=== PATIENT | female | born 1935 | race Caucasian/White ===

== ENCOUNTER 2017-06-28 01:47 | Inpatient (IN) | payer MEDICARE, OTHER ==
[~2017-06-28] VITALS: Ht 177.8 cm; Wt 81.1 kg
[2017-06-28 03:00] LABS: BASOPHILS # (AUTO) 0.02 x10^3/uL (0-0.1); BASOPHILS % (AUTO) 0 % (0-1); EOSINOPHILS # (AUTO) 0.15 x10^3/uL (0-0.4); EOSINOPHILS % (AUTO) 3 % (1-7); LYMPHOCYTES # (AUTO) 1.62 x10^3/uL (1-3.4); LYMPHOCYTES % (AUTO) 29 % (22-44); MD NO; MEAN CORPUSCULAR HEMOGLOBIN 30.5 pg (27.0-34.8); MEAN CORPUSCULAR HGB CONC 32.7 g/dL (32.4-35.8); MEAN CORPUSCULAR VOLUME 93.2 fL (80-100); MEAN PLATELET VOLUME 7.7 fL (7.4-10.4); MONOCYTES % (AUTO) 9 % (2-9); NEUTROPHILS # (AUTO) 3.25 x10^3/uL (1.8-6.8); NEUTROPHILS % (AUTO) 59 % (42-75); PLATELET COUNT 205 x10^3/uL (130-400); RED CELL DISTRIBUTION WIDTH 13.4 % (9.6-15.2)
[2017-06-28] MEDS ORDERED: SODIUM CHLORIDE 0.9% 1,000ML IVBOLUS ONE (03:00)
[2017-06-28] MEDS ORDERED: ONDANSETRON 2MG/ML, 2ML IVPush ONE (03:00)
[2017-06-28] MEDS ORDERED: MORPHINE SULFATE 4 MG/ML, 1ML IVPush PRN ×2 (03:00→05:00)
[2017-06-28 03:14] LABS: ALANINE AMINOTRANSFERASE 20 U/L (12-78); ALBUMIN 3.4 g/dL (3.4-5.0); ANION GAP 6 mmol/L (5-15); CALCIUM 9.1 mg/dL (8.5-10.1); CHLORIDE 102 mmol/L (98-107); CREATININE 0.83 mg/dL (0.55-1.02)
[2017-06-28] MEDS ORDERED: ONDANSETRON 2MG/ML, 2ML ONE (03:16)
[2017-06-28] MEDS ORDERED: MORPHINE SULFATE 4 MG/ML, 1ML ONE (03:16)
[2017-06-28 03:18] LABS: ALKALINE PHOSPHATASE 58 U/L (45-117); TOTAL PROTEIN 6.9 g/dL (6.4-8.2); TROPONIN I 0.055 ng/mL (0.000-0.045)
[2017-06-28] MEDS ORDERED: ASPIRIN 325 MG TABLET ONE (03:28)
[2017-06-28] MEDS ORDERED: ASPIRIN 81 MG TABLET CHEW PO ONE (03:30)
[2017-06-28 04:03] LABS: MICROSCOPIC NOT IND
[2017-06-28 04:06] LABS: CULTURE INDICATED? NO
[2017-06-28] MEDS ORDERED: ONDANSETRON 2MG/ML, 2ML IVPush PRN ×2 (05:00→08:30)
[2017-06-28] MEDS ORDERED: PLEASE ENTER ALLERGIES MC SCH (05:00)
[2017-06-28] MEDS ORDERED: OMNIPAQUE 350 MG/ML, 100ML BOTTLE ONE (05:23)
[2017-06-28 05:45] VITALS: BP 169/79
[2017-06-28 08:00] VITALS: BP 159/74
[2017-06-28] MEDS ORDERED: hydrALAzine 20 MG/ML, 1ML IVPush PRN (08:30)
[2017-06-28] MEDS ORDERED: TEMAZEPAM 15 MG CAPSULE PO PRN (08:30)
[2017-06-28] MEDS ORDERED: ACETAMINOPHEN 325 MG TABLET PO PRN (08:30)
[2017-06-28] MEDS ORDERED: HYDROcodone/APAP 5/325 TABLET PO PRN (08:30)
[2017-06-28] MEDS ORDERED: morphine SULFATE 10 MG/ML, 1ML IVPush PRN (08:30)
[2017-06-28] MEDS: ENOXAPARIN 40 MG/0.4 ML SQ SCH (08:30)
[2017-06-28] MEDS: PANTOPROZOLE 40MG TABLET PO SCH ×2 (08:30→20:52)
[2017-06-28] MEDS: VALSARTAN 80 MG TABLET PO SCH (09:00)
[2017-06-28 09:13] LABS: FREE T4 (FREE THYROXINE) 1.17 ng/dL (0.76-1.46); THYROID STIMULATING HORMONE 2.13 mIU/L (0.358-3.740)
[2017-06-28] MEDS: ASPIRIN 81 MG TABLET EC PO SCH (09:43)
[2017-06-28] MEDS: POLYETHYLENE GLYCOL 17 GM PACKET PO SCH (09:43)
[2017-06-28] MEDS: SODIUM CHLORIDE 0.9% 1,000 ML IV SCH ×2 (09:44→19:45)
[2017-06-28] MEDS: SUCRALFATE 1 GM/10 ML UDC PO SCH ×4 (09:50→20:52)
[2017-06-28 14:00] VITALS: BP 122/68
[2017-06-28] MEDS ORDERED: METOPROLOL TARTRATE 25 MG TABLET PO SCH (18:00)
[2017-06-28 20:40] VITALS: BP 154/83
[2017-06-29 02:23] VITALS: BP 111/63
[2017-06-29] MEDS: SODIUM CHLORIDE 0.9% 1,000 ML IV SCH (05:45)
[2017-06-29 05:59] LABS: TROPONIN I 0.063 ng/mL (0.000-0.045)
[2017-06-29 08:15] VITALS: BP 148/79
[2017-06-29] MEDS: ENOXAPARIN 40 MG/0.4 ML SQ SCH (08:25)
[2017-06-29] MEDS: VALSARTAN 80 MG TABLET PO SCH (08:31)
[2017-06-29] MEDS: SUCRALFATE 1 GM/10 ML UDC PO SCH ×2 (08:31→10:20)
[2017-06-29] MEDS: PANTOPROZOLE 40MG TABLET PO SCH (08:31)
[2017-06-29] MEDS: ASPIRIN 81 MG TABLET EC PO SCH (08:31)
[2017-06-29] MEDS: POLYETHYLENE GLYCOL 17 GM PACKET PO SCH (08:31)
[2017-06-29] MEDS ORDERED: ASPI-621 PO (12:11)
[2017-06-29] MEDS ORDERED: PANT40TA5 PO (12:11)
[2017-06-29] MEDS ORDERED: POLY17PO5 PO (12:11)
[2017-06-29] MEDS ORDERED: VALS80TA3 PO (12:11)
[2017-06-29] MEDS ORDERED: SUCR1ORA5 PO (12:11)
[2017-06-29 12:38] VITALS: BP 165/87
== END 2017-06-29 14:40 | disposition home or self-care (01) | DRG 392 ==
LOC: ED 04:08 → EDIP 04:59 → 5SO 05:33
PROVIDERS: ADMIT Internal Medicine; ATTEND Internal Medicine
DX: K21.0 Gastro-esophageal reflux disease with esophagitis (principal); I48.2 Chronic atrial fibrillation; I45.10 Unspecified right bundle-branch block; I10 Essential (primary) hypertension; R79.89 Other specified abnormal findings of blood chemistry; K59.00 Constipation, unspecified; K44.9 Diaphragmatic hernia without obstruction or gangrene; Z79.82 Long term (current) use of aspirin; Z90.49 Acquired absence of other specified parts of digestive tract
CPT/HCPCS: 36415; 71045; 74177; 80053; 81003; 83690; 84439; 84443; 84484; 85025; 93005; 93306; 96361; 96374; J2405; Q9967; J7030

== ENCOUNTER 2017-07-16 01:37 | Emergency (ER) | payer MEDICARE ==
[~2017-07-16] VITALS: Ht 167.6 cm; Wt 74.3 kg
[~2017-07-16 01:37] MED LIST: ASPI-621 PO; PANT40TA5 PO; POLY17PO5 PO; SUCR1ORA5 PO; VALS80TA3 PO
[2017-07-16] MEDS ORDERED: MAALOX/HYOSCYAMINE/LIDOCAINE 45 ML BTL ONE (02:09)
[2017-07-16] MEDS: MAALOX/HYOSCYAMINE/LIDOCAINE 45 ML BTL PO ONE ×2 (02:11→02:30)
[2017-07-16 02:22] LABS: BASOPHILS # (AUTO) 0.02 x10^3/uL (0-0.1); BASOPHILS % (AUTO) 0 % (0-1); EOSINOPHILS # (AUTO) 0.13 x10^3/uL (0-0.4); EOSINOPHILS % (AUTO) 2 % (1-7); LYMPHOCYTES % (AUTO) 32 % (22-44); MD NO; MEAN CORPUSCULAR HEMOGLOBIN 30.7 pg (27.0-34.8); MEAN CORPUSCULAR HGB CONC 33.8 g/dL (32.4-35.8); MEAN PLATELET VOLUME 7.7 fL (7.4-10.4); MONOCYTES % (AUTO) 8 % (2-9); NEUTROPHILS # (AUTO) 3.44 x10^3/uL (1.8-6.8); NEUTROPHILS % (AUTO) 57 % (42-75); PLATELET COUNT 223 x10^3/uL (130-400); RED BLOOD COUNT 4.57 x10^6/uL (3.82-5.3); RED CELL DISTRIBUTION WIDTH 12.7 % (9.6-15.2)
[2017-07-16 02:31] LABS: ALANINE AMINOTRANSFERASE 21 U/L (12-78); ALBUMIN 3.6 g/dL (3.4-5.0); ANION GAP 8 mmol/L (5-15); CALCIUM 8.5 mg/dL (8.5-10.1); CHLORIDE 100 mmol/L (98-107); CREATININE 0.76 mg/dL (0.55-1.02)
[2017-07-16 02:36] LABS: ALKALINE PHOSPHATASE 62 U/L (45-117); TOTAL PROTEIN 7.2 g/dL (6.4-8.2); TROPONIN I 0.057 ng/mL (0.000-0.045)
[2017-07-16] MEDS ORDERED: HYDR25TA6 PO (02:42)
[2017-07-16 04:20] VITALS: BP 178/89
== END 2017-07-16 04:33 | disposition home or self-care (01) ==
LOC: ED 01:44
DX: I10 Essential (primary) hypertension (principal); M47.892 Other spondylosis, cervical region; R10.13 Epigastric pain; R78.89 Finding of other specified substances, not normally found in blood; I48.91 Unspecified atrial fibrillation; K21.9 Gastro-esophageal reflux disease without esophagitis; Z90.49 Acquired absence of other specified parts of digestive tract
CPT/HCPCS: 36415; 71045; 72125; 80053; 83690; 84484; 85025; 93005; 99285

== ENCOUNTER 2019-01-31 03:32 | Inpatient (IN) | payer MEDICARE ==
[~2019-01-31] VITALS: Ht 167.6 cm; Wt 75.0 kg
[2019-02-01 06:58] VITALS: BP 182/84
== END 2019-02-01 14:24 | disposition home or self-care (01) | DRG 305 ==
LOC: ED 05:40 → EDIP 05:41 → 5SO 06:25 → DCLOUNGE 02-01 14:01
PROVIDERS: ADMIT Family Medicine; ATTEND Family Medicine
DX: I10 Essential (primary) hypertension (principal); R10.13 Epigastric pain; R07.9 Chest pain, unspecified; I25.10 Atherosclerotic heart disease of native coronary artery without angina pectoris; K21.0 Gastro-esophageal reflux disease with esophagitis; I48.2 Chronic atrial fibrillation; K21.9 Gastro-esophageal reflux disease without esophagitis; N28.1 Cyst of kidney, acquired; K59.00 Constipation, unspecified; E87.6 Hypokalemia; I25.2 Old myocardial infarction; Z90.49 Acquired absence of other specified parts of digestive tract; Z79.82 Long term (current) use of aspirin
CPT/HCPCS: 36415; 71045; 80048; 80053; 83690; 83735; 83880; 84443; 84484; 85025; 85610; 93005; 93306; 99285; G0378; J1650

== ENCOUNTER 2020-03-16 17:22 | Inpatient (IN) | payer MEDICARE ==
[~2020-03-16] VITALS: Ht 167.6 cm; Wt 102.0 kg
[~2020-03-16 17:22] MED LIST changes: +AMLO2.5T5 PO; -ASPI-621 PO; +ASPI81TA45 PO; +HYDR25TA6 PO; -PANT40TA5 PO; +PANT40TA6 PO
--- NOTE | 2020-03-16 17:35 | NUR ---
biba. pt had glf at home. pt c/o left hip pain with obvious rotation. no loc/blood thinner/neck or head pain. pt's aox4. resps even and unlabored. 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 bp/spo2 monitors in place. call light within reach.
[2020-03-16] MEDS ORDERED: morphine SULFATE 10 MG/ML, 1ML IVPush ONE (18:00)
--- NOTE | 2020-03-16 18:08 | NUR ---
PT IN XRAY AT THIS TIME.
[2020-03-16 18:19] LABS: BASOPHILS # (AUTO) 0.03 x10^3/uL (0-0.1); BASOPHILS % (AUTO) 0 % (0-1); EOSINOPHILS # (AUTO) 0.11 x10^3/uL (0-0.4); EOSINOPHILS % (AUTO) 1 % (1-7); LYMPHOCYTES # (AUTO) 1.64 x10^3/uL (1-3.4); LYMPHOCYTES % (AUTO) 22 % (22-44); MD NO; MEAN CORPUSCULAR HEMOGLOBIN 30.7 pg (27.0-34.8); MEAN CORPUSCULAR HGB CONC 33.3 g/dL (32.4-35.8); MEAN PLATELET VOLUME 8.4 fL (7.4-10.4); MONOCYTES # (AUTO) 0.53 x10^3/uL (0.2-0.8); MONOCYTES % (AUTO) 7 % (2-9); NEUTROPHILS # (AUTO) 5.27 x10^3/uL (1.8-6.8); NEUTROPHILS % (AUTO) 70 % (42-75); PLATELET COUNT 209 x10^3/uL (130-400); RED BLOOD COUNT 4.43 x10^6/uL (3.82-5.3); RED CELL DISTRIBUTION WIDTH 13.1 % (9.6-15.2)
--- NOTE | 2020-03-16 18:23 | NUR ---
pt back to room from xray. pt stated"i don't need pain meds at this time. i'll let you know if i need it."
[2020-03-16 18:25] LABS: ANION GAP 6 mmol/L (5-15); CALCIUM 8.6 mg/dL (8.5-10.1); CHLORIDE 101 mmol/L (98-107); CREATININE 0.88 mg/dL (0.55-1.02); INTERNATIONAL NORMALIZED RATIO 1.04 (0.93-1.1); PROTHROMBIN TIME 10.7 Seconds (9.6-11.5)
--- NOTE | 2020-03-16 18:52 | NUR ---
RN notified by MD that pt surgery will be tomorrow morning. Pt can eat and drink up till midnight.
[2020-03-16] MEDS ORDERED: ONDANSETRON ODT 4 MG PO PRN (19:00)
[2020-03-16] MEDS ORDERED: hydrALAzine 20 MG/ML, 1ML IVPush PRN (19:00)
[2020-03-16] MEDS ORDERED: DOCUSATE 100 MG CAPSULE PO PRN (19:00)
[2020-03-16] MEDS ORDERED: FAMOTIDINE 20 MG/2 ML IVPush ONE (19:00)
[2020-03-16] MEDS ORDERED: BISACODYL 10 MG SUPP PR PRN (19:00)
[2020-03-16] MEDS ORDERED: ONDANSETRON 2MG/ML, 2ML IVPush PRN (19:00)
[2020-03-16] MEDS ORDERED: PROMETHAZINE 25 MG/ML, 1ML IM PRN (19:00)
--- NOTE | 2020-03-16 19:02 | NUR ---
report given to malinda eller.
--- NOTE | 2020-03-16 19:20 | NUR ---
Report given to JASMIN Costa.
[2020-03-16] MEDS ORDERED: FAMOTIDINE 20 MG/2 ML ONE ×2 (19:25→23:31)
[2020-03-16] MEDS: D5%-0.45% NACL 1,000 ML IV SCH (19:38)
[2020-03-16] MEDS ORDERED: morphine SULFATE 10 MG/ML, 1ML ONE (19:40)
[2020-03-16 20:22] VITALS: BP 156/85
[2020-03-16] MEDS: PANTOPRAZOLE 40MG TABLET PO SCH (21:00)
[2020-03-16] MEDS: OXYcodone IR 5MG TABLET PO PRN (21:13)
[2020-03-17 00:58] VITALS: BP 152/85
[2020-03-17] MEDS: D5%-0.45% NACL 1,000 ML IV SCH ×2 (04:21→12:00)
[2020-03-17] MEDS: morphine SULFATE 10 MG/ML, 1ML IVPush PRN ×2 (04:27)
[2020-03-17 05:51] LABS: BASOPHILS # (AUTO) 0.02 x10^3/uL (0-0.1); BASOPHILS % (AUTO) 0 % (0-1); EOSINOPHILS # (AUTO) 0.04 x10^3/uL (0-0.4); EOSINOPHILS % (AUTO) 1 % (1-7); LYMPHOCYTES # (AUTO) 0.94 x10^3/uL (1-3.4); LYMPHOCYTES % (AUTO) 12 % (22-44); MD NO; MEAN CORPUSCULAR HEMOGLOBIN 30.2 pg (27.0-34.8); MEAN CORPUSCULAR HGB CONC 32.4 g/dL (32.4-35.8); MEAN PLATELET VOLUME 8.4 fL (7.4-10.4); MONOCYTES # (AUTO) 0.51 x10^3/uL (0.2-0.8); MONOCYTES % (AUTO) 7 % (2-9); NEUTROPHILS # (AUTO) 6.26 x10^3/uL (1.8-6.8); NEUTROPHILS % (AUTO) 81 % (42-75); PLATELET COUNT 179 x10^3/uL (130-400); RED BLOOD COUNT 4.21 x10^6/uL (3.82-5.3); RED CELL DISTRIBUTION WIDTH 13.1 % (9.6-15.2)
[2020-03-17] MEDS ORDERED: ASPIRIN 81 MG TABLET EC PO SCH (06:00)
[2020-03-17 06:06] LABS: CHLORIDE 101 mmol/L (98-107)
[2020-03-17 06:18] LABS: ALANINE AMINOTRANSFERASE 20 U/L (12-78); ALBUMIN 3.3 g/dL (3.4-5.0); ALKALINE PHOSPHATASE 54 U/L (45-117); ANION GAP 6 mmol/L (5-15); BILIRUBIN,TOTAL 1.6 mg/dL (0.2-1.0); CALCIUM 8.1 mg/dL (8.5-10.1); CHOL/HDL RATIO 3.9; CHOLESTEROL, TOTAL 197 mg/dL (140-239); CREATININE 0.71 mg/dL (0.55-1.02); HDL CHOL % 26 % (28-40); HDL CHOLESTEROL (DIRECT) 51 mg/dL (40-60); LDL CHOLESTEROL,CALCULATED 121 mg/dL (54-169); LDL/HDL RATIO 2.4 (0.5-3.0); TOTAL PROTEIN 6.7 g/dL (6.4-8.2); TRIGLYCERIDES 123 mg/dL (50-200); VLDL CHOLESTEROL 25 mg/dL (0-25)
[2020-03-17] MEDS ORDERED: SODIUM CHLORIDE 0.9% 50 ML ONE (06:55)
[2020-03-17] MEDS ORDERED: KETOROLAC 60 MG/2 ML ONE (06:55)
[2020-03-17] MEDS ORDERED: ROPIvacaine/PF 0.2%, 20 ML ONE (06:55)
[2020-03-17] MEDS ORDERED: NEOSPORIN OINT, 15GM ONE (06:55)
[2020-03-17] MEDS ORDERED: TRANEXAMIC ACID 100 MG/ML, 10ML ONE ×2 (06:56)
[2020-03-17] MEDS ORDERED: EPINEPHRINE 1 MG/ML, 1ML ONE (06:56)
[2020-03-17] MEDS ORDERED: CHLORHEXIDINE 15 ML UDC ONE (07:08)
[2020-03-17] MEDS ORDERED: FENTANYL PF 250 MCG/5ML ONE (07:14)
[2020-03-17] MEDS ORDERED: SODIUM CHLORIDE 0.9% PF 10ML ONE (07:15)
[2020-03-17] MEDS ORDERED: LIDOCAINE-MPF 2% ,5ML ONE (07:15)
[2020-03-17] MEDS ORDERED: ACETAMINOPHEN 500 MG TABLET ONE (07:21)
[2020-03-17] MEDS ORDERED: FENTANYL PF 100 MCG/2ML IV PRN (07:30)
[2020-03-17] MEDS ORDERED: PROMETHAZINE 25 MG/ML, 1ML IVPush PRN (07:30)
[2020-03-17] MEDS ORDERED: CHLORHEXIDINE 15 ML UDC MM ONE (07:30)
[2020-03-17] MEDS ORDERED: OXYcodone 5 MG/5 ML ORAL.SOL UDC PO PRN (07:30)
[2020-03-17] MEDS ORDERED: ONDANSETRON 2MG/ML, 2ML IVPush PRN (07:30)
[2020-03-17] MEDS ORDERED: MEPERIDINE/PF 25MG/0.5ML IVPush PRN (07:30)
[2020-03-17] MEDS ORDERED: ACETAMINOPHEN 500 MG TABLET PO ONE (07:30)
[2020-03-17] MEDS ORDERED: HYDROmorphone 1 MG/ML, 1ML INJ IVPush PRN (07:30)
[2020-03-17] MEDS ORDERED: EPHEDRINE 50 MG/ML, 1ML IVPush PRN (07:30)
[2020-03-17] MEDS ORDERED: LABETALOL 5MG/ML, 20ML IV PRN (07:30)
[2020-03-17] MEDS ORDERED: hydrALAzine 20 MG/ML, 1ML IV PRN (07:30)
[2020-03-17] MEDS: CEFAZOLIN PMX 1GM/50ML 50 ML IV SCH ×2 (08:00→15:47)
[2020-03-17] MEDS ORDERED: KETOROLAC 30 MG/1 ML ONE (08:00)
[2020-03-17] MEDS ORDERED: DEXAMETHASONE 4 MG/ML, 1ML ONE (08:01)
[2020-03-17] MEDS ORDERED: GLYCOPYRROLATE 0.2MG/1ML, 5ML ONE (08:01)
[2020-03-17] MEDS ORDERED: CEFAZOLIN 1,000 MG ONE (08:01)
[2020-03-17] MEDS ORDERED: SUCCINYLCHOLINE 20 MG/ML, 10ML ONE (08:01)
[2020-03-17] MEDS ORDERED: ONDANSETRON 2MG/ML, 2ML ONE ×2 (08:01→09:54)
[2020-03-17] MEDS ORDERED: PROPOFOL 10 MG/ML, 20ML ONE (08:01)
[2020-03-17] MEDS ORDERED: NALOXONE 0.4 MG/ML, 1ML ONE (08:50)
[2020-03-17] MEDS ORDERED: VALSARTAN 80 MG TABLET PO SCH (09:00)
[2020-03-17] MEDS: PANTOPRAZOLE 40MG TABLET PO SCH ×2 (09:00→20:19)
[2020-03-17] MEDS ORDERED: AMLODIPINE 2.5 MG TABLET PO SCH (09:00)
[2020-03-17] MEDS ORDERED: FENTANYL PF 100 MCG/2ML ONE (09:17)
[2020-03-17 11:04] VITALS: BP 90/55
[2020-03-17 13:38] VITALS: BP 91/59
[2020-03-17] MEDS: OXYcodone IR 5MG TABLET PO PRN (17:48)
[2020-03-17] MEDS: ACETAMINOPHEN 325 MG TABLET PO PRN (17:48)
[2020-03-17 20:00] VITALS: BP 122/75
[2020-03-17] MEDS: POLYETHYLENE GLYCOL 17 GM PACKET PO PRN (22:21)
[2020-03-18] MEDS: ACETAMINOPHEN 325 MG TABLET PO PRN ×2 (00:14→16:33)
[2020-03-18] MEDS: OXYcodone IR 5MG TABLET PO PRN ×2 (00:15→19:06)
[2020-03-18 00:20] VITALS: BP 119/68
[2020-03-18 04:00] VITALS: BP 111/68
[2020-03-18 05:50] LABS: MEAN CORPUSCULAR HEMOGLOBIN 30.5 pg (27.0-34.8); MEAN CORPUSCULAR HGB CONC 32.5 g/dL (32.4-35.8); MEAN PLATELET VOLUME 8.3 fL (7.4-10.4); PLATELET COUNT 155 x10^3/uL (130-400); RED BLOOD COUNT 4.05 x10^6/uL (3.82-5.3)
[2020-03-18 05:53] LABS: CHLORIDE 92 mmol/L (98-107)
[2020-03-18 05:57] LABS: ANION GAP 9 mmol/L (5-15); CALCIUM 8.2 mg/dL (8.5-10.1); CREATININE 1.12 mg/dL (0.55-1.02)
[2020-03-18 06:31] LABS: MD YES
[2020-03-18 06:33] LABS: BAND#(MANUAL) 5.54 x10^3/uL; BANDS%(MANUAL) 45 % (0-7); EOS#(MANUAL) 0.12 x10^3/uL (0.0-0.4); EOS% (MANUAL) 1 % (1-7); LYMPH#(MANUAL) 0.98 x10^3/uL (1-3.4); LYMPHS% (MANUAL) 8 % (22-44); METAMYELOCYTES# (MANUAL) 0.74 x10^3/uL (0-0); METAMYELOCYTES% (MANUAL) 6 % (0-1); SEG#(MANUAL) 4.92 x10^3/uL (1.8-6.8); SEGS% (MANUAL) 40 % (42-75)
[2020-03-18 06:34] LABS: <RBC MORPHOLOGY> NORMAL
[2020-03-18 06:35] LABS: <PLATELET ESTIMATE> ADEQUATE; <PLT MORPHOLOGY> NORMAL PLT MORPH; PMNS WITH VACUOLES 1+
[2020-03-18] MEDS ORDERED: PHARMACY MAY ADJ FOR RENAL FX MC PRN (07:30)
[2020-03-18 08:08] VITALS: BP 111/73
[2020-03-18] MEDS ORDERED: VALSARTAN 80 MG TABLET PO SCH (09:00)
[2020-03-18] MEDS: ASPIRIN 81 MG TABLET EC PO SCH ×2 (10:24→20:46)
[2020-03-18] MEDS: PANTOPRAZOLE 40MG TABLET PO SCH ×2 (10:24→20:46)
[2020-03-18] MEDS: AMPICILLIN/SULBACTAM 3 GM in SODIUM CHLORIDE 0.9% 100 ML IV SCH ×3 (10:37→20:48)
[2020-03-18] MEDS: HEPARIN 5,000 UNITS/ML, 1ML SQ SCH ×2 (11:00→20:46)
[2020-03-18] MEDS ORDERED: SODIUM CHLORIDE 0.9% 1,000 ML IV SCH (11:00)
[2020-03-18 13:42] LABS: ANION GAP 7 mmol/L (5-15); CALCIUM 8.3 mg/dL (8.5-10.1); CHLORIDE 91 mmol/L (98-107); CREATININE 0.93 mg/dL (0.55-1.02)
[2020-03-18] MEDS ORDERED: OMNIPAQUE 350 MG/ML, 100ML BOTTLE ONE (14:57)
[2020-03-18 15:26] VITALS: BP 147/80
[2020-03-18 20:20] VITALS: BP 106/64
[2020-03-18 22:25] LABS: ANION GAP 5 mmol/L (5-15); CALCIUM 7.9 mg/dL (8.5-10.1); CHLORIDE 90 mmol/L (98-107); CREATININE 0.88 mg/dL (0.55-1.02)
[2020-03-19 01:00] VITALS: BP 103/66
[2020-03-19] MEDS: OXYcodone IR 5MG TABLET PO PRN ×2 (01:51→15:51)
[2020-03-19] MEDS ORDERED: MAALOX/HYOSCYAMINE/LIDOCAINE 45 ML BTL PO ONE (02:30)
[2020-03-19] MEDS: AMPICILLIN/SULBACTAM 3 GM in SODIUM CHLORIDE 0.9% 100 ML IV SCH ×4 (02:55→20:35)
[2020-03-19] MEDS: HEPARIN 5,000 UNITS/ML, 1ML SQ SCH ×3 (03:57→17:26)
[2020-03-19 04:26] LABS: SODIUM,URINE RANDOM < 5 mmol/L
[2020-03-19 05:04] LABS: OSMOLALITY,URINE 378 mOsm/kg (500-850)
[2020-03-19 05:04] LABS: MEAN CORPUSCULAR HEMOGLOBIN 30.2 pg (27.0-34.8); MEAN CORPUSCULAR HGB CONC 32.1 g/dL (32.4-35.8); MEAN PLATELET VOLUME 8.9 fL (7.4-10.4); PLATELET COUNT 129 x10^3/uL (130-400); RED BLOOD COUNT 3.67 x10^6/uL (3.82-5.3)
[2020-03-19 05:11] LABS: ALBUMIN 2.9 g/dL (3.4-5.0); ANION GAP 5 mmol/L (5-15); CALCIUM 8.4 mg/dL (8.5-10.1); CHLORIDE 89 mmol/L (98-107)
[2020-03-19 05:18] LABS: ALANINE AMINOTRANSFERASE 20 U/L (12-78); ALKALINE PHOSPHATASE 51 U/L (45-117); BILIRUBIN,TOTAL 2.2 mg/dL (0.2-1.0); CREATININE 0.78 mg/dL (0.55-1.02); TOTAL PROTEIN 6.3 g/dL (6.4-8.2)
[2020-03-19 06:23] LABS: MD YES
[2020-03-19 06:24] LABS: BAND#(MANUAL) 4.26 x10^3/uL; BANDS%(MANUAL) 33 % (0-7); EOS#(MANUAL) 0.26 x10^3/uL (0.0-0.4); EOS% (MANUAL) 2 % (1-7); LYMPH#(MANUAL) 0.39 x10^3/uL (1-3.4); LYMPHS% (MANUAL) 3 % (22-44); MONOS#(MANUAL) 0.52 x10^3/uL (0.3-2.7); MONOS% (MANUAL) 4 % (2-9); SEG#(MANUAL) 7.48 x10^3/uL (1.8-6.8); SEGS% (MANUAL) 58 % (42-75)
[2020-03-19 06:25] LABS: <RBC MORPHOLOGY> NORMAL
[2020-03-19 06:26] LABS: <PLATELET ESTIMATE> ADEQUATE; <PLT MORPHOLOGY> NORMAL PLT MORPH
[2020-03-19 07:18] VITALS: BP 114/79
[2020-03-19] MEDS: ASPIRIN 81 MG TABLET EC PO SCH ×2 (08:50→20:35)
[2020-03-19] MEDS: PANTOPRAZOLE 40MG TABLET PO SCH ×2 (08:50→20:35)
[2020-03-19 13:12] VITALS: BP 131/78
[2020-03-19 15:00] VITALS: BP 136/68
[2020-03-19] MEDS ORDERED: MAGNESIUM HYDROXIDE 8%, 30ML UDC ONE (16:02)
[2020-03-19] MEDS ORDERED: SODIUM CHLORIDE 1 GM TABLET ONE (16:02)
[2020-03-19] MEDS: SODIUM CHLORIDE 1 GM TABLET PO SCH (16:06)
[2020-03-19] MEDS: SODIUM CHLORIDE 0.9% 1,000 ML IV SCH (16:06)
[2020-03-19] MEDS ORDERED: MAGNESIUM HYDROXIDE 8%, 30ML UDC PO PRN (16:30)
[2020-03-19 20:27] VITALS: BP 133/80
[2020-03-20] MEDS: HEPARIN 5,000 UNITS/ML, 1ML SQ SCH ×2 (03:25→10:59)
[2020-03-20] MEDS: AMPICILLIN/SULBACTAM 3 GM in SODIUM CHLORIDE 0.9% 100 ML IV SCH ×3 (03:25→15:21)
[2020-03-20 03:33] VITALS: BP 166/75
[2020-03-20] MEDS: SODIUM CHLORIDE 0.9% 1,000 ML IV SCH (06:00)
[2020-03-20 07:06] VITALS: BP 137/83
[2020-03-20] MEDS: PANTOPRAZOLE 40MG TABLET PO SCH (07:31)
[2020-03-20] MEDS: SODIUM CHLORIDE 1 GM TABLET PO SCH (09:00)
[2020-03-20] MEDS ORDERED: SODIUM CHLORIDE 1 GM TABLET PO SCH (09:00)
[2020-03-20] MEDS: ACETAMINOPHEN 325 MG TABLET PO PRN (09:00)
[2020-03-20] MEDS: ASPIRIN 81 MG TABLET EC PO SCH (09:01)
[2020-03-20] MEDS: POLYETHYLENE GLYCOL 17 GM PACKET PO PRN (09:01)
[2020-03-20] MEDS ORDERED: IBUP-1222 PO (13:59)
[2020-03-20] MEDS ORDERED: ASPI81TA45 PO (13:59)
[2020-03-20] MEDS ORDERED: ACET325T26 PO (13:59)
[2020-03-20] MEDS ORDERED: AMOX1TAB61 PO (13:59)
[2020-03-20] MEDS ORDERED: ONDA4TAB13 PO (13:59)
[2020-03-20 14:30] VITALS: BP 159/87
== END 2020-03-20 15:59 | DRG 469 ==
LOC: ED 18:47 → EDIP 18:53 → 4NE 20:10 → 5SO 03-18 15:02 → 4NE 03-19 14:34
PROVIDERS: ADMIT Internal Medicine; ATTEND Family Medicine
PROC: 0SRS0J9 Replacement of Left Hip Joint, Femoral Surface with Synthetic Substitute, Cemented, Open Approach (ICD-10-PCS; principal; 2020-03-17 07:30)
DX: S72.092A Other fracture of head and neck of left femur, initial encounter for closed fracture (principal); J96.01 Acute respiratory failure with hypoxia; J69.0 Pneumonitis due to inhalation of food and vomit; I48.20 Chronic atrial fibrillation, unspecified; D68.69 Other thrombophilia; E87.1 Hypo-osmolality and hyponatremia; N17.9 Acute kidney failure, unspecified; E11.9 Type 2 diabetes mellitus without complications; I10 Essential (primary) hypertension; I95.81 Postprocedural hypotension; K21.9 Gastro-esophageal reflux disease without esophagitis; M21.70 Unequal limb length (acquired), unspecified site; I25.2 Old myocardial infarction; W01.0XXA Fall on same level from slipping, tripping and stumbling without subsequent striking against object, initial encounter; Y93.89 Activity, other specified; Y92.89 Other specified places as the place of occurrence of the external cause; Y99.8 Other external cause status
CPT/HCPCS: 36415; 71045; 71275; 72170; 74177; 80048; 80053; 80061; 83036; 83735; 83930; 83935; 84300; 84443; 85025; 85610; 85730; 87040; 87635; 93005; 96374; 96375; 99285; C1713; G0378; J0171; J0295; J0690; J1100; J1644; J1885; J2310; J2405; J2704; J2795; J3010; Q9967; C1762; C1776; J0330; J2270; J3490; J7030